=== PATIENT | female | born 1980 | race Caucasian/White ===

== ENCOUNTER 2020-04-06 05:26 | Emergency (ER) | payer OTHER ==
[2020-04-06 05:39] VITALS: TEMP 97.9; BMI 31.8
--- OUTSIDE RECORDS SUMMARY | 2020-04-06 05:56 | XMS ---
:1980 Author Organization [facility] Support Name Relationship Address Phone DECICCOS Unavailable [address] [place] [address] [employer] [address] [place] [address] Re-disclosure Warning The records that you are about to access may contain information from federally- assisted alcohol or drug abuse programs. If such information is present, then the following federally mandated warning applies: This information has been disclosed to you from records protected by federal confidentiality rules (42 CFR part 2). The federal rules prohibit you from making any further disclosure of this information unless further disclosure is expressly permitted by the written consent of the person to whom it pertains or as otherwise permitted by 42 CFR part 2. A general authorization for the release of medical or other information is NOT sufficient for this purpose. The Federal rules restrict any use of the information to criminally investigate or prosecute any alcohol or drug abuse patient.The records that you are about to access may contain highly sensitive health information, the redisclosure of which is protected by Article 27-F of the [facility] Public Health law. If you continue you may haveaccess to information: Regarding HIV / AIDS; Provided by facilities licensed or operated by the [facility] Office of Mental Health; or Provided by the [facility] Office for People With Developmental Disabilities. If such information is present, then the following [facility] mandated warning applies: This information has been disclosed to you from confidential records which are protected by state law. State law prohibits you from making any further disclosure of this information without the specific written consent of the person to whom it pertains, or as otherwise permitted by law. Any unauthorized further disclosure in violation of state law may result in a fine or custodial sentence or both. A general authorization for the release of medical or other information is NOT sufficient authorization for further disclosure. Insurance Providers Payer name Policy type Policy ID Covered Covered democrat's Policy P hilton / Coverage democrat ID relationship to [facility] Inf ormation type molina [facility] [id number] [id number] Results ID Date Data Source [id number] 11/20/2019 07:26:00 PM EDT [facility] Name Value Range Interpretation Description Data Sup porting Code Source(s) Document(s ) SARS [facility] CORONAVIRUS 2 RNA This lab was ordered by [facility] and reported by [facility]. Procedure
[2020-04-06] MEDS ORDERED: methylPREDNISolone NA SUCC 125 MG/2 ML VIAL IVPB ONE (06:03)
--- NOTE | 2020-04-06 06:09 | PDOC ---
History of Present Illness - General Chief Complaint: Shortness of Breath Stated Complaint: DIFFICULTY BREATHING Time Seen by Provider: 04/06/20 05:56 History Source: Patient - History of Present Illness Initial Comments: 04/06/20 06:04 40-year-old female with history of asthma reports that for the last 2 weeks she has been having off-and-on episodes of wheezing. Patient has been using her inhaler pump with no significant improvement. Patient report last night patient started having worsening symptoms. Denies history of intubation or hospitalization. 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 Past History - Medical History Allergies/Adverse Reactions: Allergies Allergy/AdvReac Type Severity Reaction Status Date / Time No Known Allergies Allergy Verified 04/06/20 05:37 - Reproductive History Is Patient Now?: No - Psycho-Social/Smoking History Smoking History: Never smoked Have you smoked in the past 12 months: No Information on smoking cessation initiated: No - Substance Abuse Hx (Audit-C & DAST Scrn) How often the patient has a drink containing alcohol: Never Score: In Men: 4 or > Positive; In Women: 3 or > Positive: 0 Screen Result (Pos requires Nsg. Audit-10AR): Negative In the last yr the pt used illegal drug/Rx for NonMed reason: No Score: Yes response is considered Positive: 0 Screen Result (Positive result requires Nsg. DAST-10): Negative Review of Systems - Review of Systems Able to Perform ROS?: Yes Is the patient limited Serbian proficient: No Constitutional: No: Symptoms Reported, See HPI, Chills, Diaphoresis, Fever, Loss of Appetite, Malaise, Night Sweats, Weakness, Weight Stable, Unintentional Wgt. Loss, Unexplained wgt Loss, Other Respiratory: Yes: Cough *Physical Exam - Vital Signs Last Vital Signs Temp Pulse Resp BP Pulse Ox 97.9 F 119 H 22 H 150/93 96 04/06/20 05:34 04/06/20 05:34 04/06/20 05:34 04/06/20 05:34 04/06/20 05:34 - Physical Exam General Appearance: Yes: Appropriately Dressed Respiratory/Chest: positive: Labored Respiration, Wheezing, Other (Slight retractions) Cardiovascular: positive: Tachycardia Extremity: positive: Normal Capillary Refill, Normal Inspection Integumentary: positive: Normal Color, Dry, Warm Neurologic: positive: Fully Oriented, Alert, Normal Mood/Affect ED Treatment Course - RADIOLOGY Radiology Studies Ordered: Category Date Time Status CHEST PA & LAT [RAD] Stat Radiology 04/06/20 06:03 Ordered ED Progress Note - Progress Note Progress Note: 04/06/20 06:08 Asthma exacerbation P: duoneb solumedrol chest xray reevaluate patient need private room for nebulization. patient signed out to Dr. Durham/ . Discharge - Discharge Information Problems reviewed: Yes Clinical Impression/Diagnosis: Asthma exacerbation Qualifiers: Asthma severity: moderate Asthma persistence: persistent Qualified Code(s): J45.41 - Moderate persistent asthma with (acute) exacerbation Condition: Fair - Follow up/Referral - Patient Discharge Instructions - Post Discharge Activity
[2020-04-06] MEDS ORDERED: methylPREDNISolone NA SUCC 125 MG/2 ML VIAL ONE (06:15)
[2020-04-06] MEDS ORDERED: ALBUTEROL SO4 2.5/IPRATROPIUM 0.5 INH SOL 3 ML VIAL.NEB. NEB ONE ×2 (06:15→07:13)
[2020-04-06] MEDS: ALBUTEROL SO4 2.5/IPRATROPIUM 0.5 INH SOL 3 ML VIAL.NEB. NEB SCH ×4 (06:33→07:17)
--- NOTE | 2020-04-06 07:01 | PDOC ---
*Physical Exam - Vital Signs Last Vital Signs Temp Pulse Resp BP Pulse Ox 97.9 F 119 H 22 H 150/93 98 04/06/20 05:34 04/06/20 05:34 04/06/20 05:34 04/06/20 05:34 04/06/20 06:40 - Physical Exam Received patient as a sign out from ESDRAS Thompson Patient to be observed with ultimate admission for asthma exacerbation in the event the patient does not improve. ED Treatment Course - Medications Given in the ED: ED Medications Discontinued Medications Generic Name Dose Route Start Last Admin Trade Name Radha PRN Reason Stop Dose Admin Methylprednisolone Sodium Succinate 125 mg 04/06/20 06:03 04/06/20 06:33 Solu-Medrol - IVPB 04/06/20 06:04 125 mg ONCE ONE Administration Medical Decision Making - Medical Decision Making Patient was signed out to the day team Upon re-assessment, the patient has significant improvement and able to ambulate on her own volition without difficulty. Likely the patient will be discharged. Discharge - Discharge Information Problems reviewed: Yes Clinical Impression/Diagnosis: Asthma exacerbation Qualifiers: Asthma severity: moderate Asthma persistence: persistent Qualified Code(s): J45.41 - Moderate persistent asthma with (acute) exacerbation - Additional Discharge Information Prescriptions: predniSONE [Deltasone -] 40 mg PO DAILY #10 tablet - Follow up/Referral Referrals: Guero Lopez MD [Staff Physician] - - Patient Discharge Instructions Patient Printed Discharge Instructions: DI for Asthma -- Adult - Post Discharge Activity
[2020-04-06] MEDS ORDERED: ALBUTEROL SO4 HFA INHALER IH ONE ×2 (07:48→08:08)
[2020-04-06 08:31] VITALS: BP 117/86; PULSE 129
--- NOTE | 2020-04-06 08:39 | PDOC ---
*Physical Exam - Vital Signs Last Vital Signs Temp Pulse Resp BP Pulse Ox 97.9 F 129 H 22 H 117/86 96 04/06/20 05:34 04/06/20 08:00 04/06/20 08:00 04/06/20 08:00 04/06/20 08:00 - Physical Exam 04/06/20 08:36 Patient endorsed to me by Dr. Caldwell. Patient is a 40-year-old female with history of asthma, no history of intubations, last time on steroids 12 months previously presented with mild to moderate shortness of breath consistent with previous asthma exacerbations. Patient is received albuterol/Atrovent x3 as well as IV Solu-Medrol. On my evaluation, patient noted to be awake and alert, resting comfortably, speaking full sentences, with good air entry bilaterally, mildly tachycardic, with end expiratory wheezing bilaterally. No accessory muscle use or retractions were noted. Chest x-ray revealed no evidence of infiltrate or effusion. Will administer albuterol MDI. Will discharge with outpatient prednisone and PMD follow-up. ED Treatment Course - Medications Given in the ED: ED Medications Discontinued Medications Generic Name Dose Route Start Last Admin Trade Name Freq PRN Reason Stop Dose Admin Albuterol Sulfate 2 puff 04/06/20 07:48 04/06/20 08:29 Ventolin Hfa Inhaler - IH 04/06/20 07:49 2 puff ONCE ONE Administration Albuterol/Ipratropium 1 amp 04/06/20 06:15 04/06/20 07:17 Duoneb - NEB 04/06/20 07:01 1 amp Q15M LUIS Administration Methylprednisolone Sodium Succinate 125 mg 04/06/20 06:03 04/06/20 06:33 Solu-Medrol - IVPB 04/06/20 06:04 125 mg ONCE ONE Administration Discharge - Discharge Information Problems reviewed: Yes Clinical Impression/Diagnosis: Asthma exacerbation Qualifiers: Asthma severity: moderate Asthma persistence: persistent Qualified Code(s): J45.41 - Moderate persistent asthma with (acute) exacerbation Condition: Stable Disposition: HOME - Follow up/Referral Referrals: Guero Lopez MD [Staff Physician] - - Patient Discharge Instructions Patient Printed Discharge Instructions: DI for Asthma -- Adult - Post Discharge Activity
== END 2020-04-06 09:08 | disposition home or self-care (01) ==
LOC: JER 05:26
PROC: 3E0F7GC Introduction of Other Therapeutic Substance into Respiratory Tract, Via Natural or Artificial Opening (ICD-10-PCS; principal; 2020-04-06)
PROC: 3E033GC Introduction of Other Therapeutic Substance into Peripheral Vein, Percutaneous Approach (ICD-10-PCS; 2020-04-06)
DX: J45.41 Moderate persistent asthma with (acute) exacerbation (principal)
CPT/HCPCS: 71046-TC-FY; 99284-25

== ENCOUNTER 2023-09-28 13:50 | Emergency (ER) | payer BC, OTHER ==
[2023-09-28 13:58] VITALS: BP 144/77; PULSE 69; RESP 18; TEMP 98.2; BMI 36.3
[2023-09-28] MEDS ORDERED: KETOROLAC TROMETHAMINE 30 MG/1 ML VIAL ONE (15:25)
[2023-09-28] MEDS ORDERED: CYCLOBENZAPRINE HCL 10 MG TABLET (FP) ONE (15:25)
[2023-09-28] MEDS ORDERED: LIDOCAINE 4% PATCH TP ONE (15:25)
[2023-09-28] MEDS ORDERED: ACETAMINOPHEN 500 MG TABLET (FP) ONE (15:25)
[2023-09-28] MEDS: CYCLOBENZAPRINE HCL 10 MG TABLET (FP) PO ONE (15:35)
[2023-09-28] MEDS: KETOROLAC TROMETHAMINE 30 MG/1 ML VIAL IM ONE (15:35)
[2023-09-28] MEDS: LIDOCAINE 4% PATCH TP ONE (15:35)
[2023-09-28] MEDS: ACETAMINOPHEN 500 MG TABLET (FP) PO ONE (15:36)
[2023-09-28] MEDS ORDERED: LIDOCAINE PATCH REMOVAL MC SCH (22:00)
== END 2023-09-28 16:10 | disposition home or self-care (01) ==
LOC: JERFT 13:50
PROC: 3E0233Z Introduction of Anti-inflammatory into Muscle, Percutaneous Approach (ICD-10-PCS; principal; 2023-09-28)
DX: S83.91XA Sprain of unspecified site of right knee, initial encounter (principal); X50.9XXA Other and unspecified overexertion or strenuous movements or postures, initial encounter
CPT/HCPCS: 73562-TC-RT-FY; 99284-25